=== PATIENT | male | born 1945 ===

== ENCOUNTER 2023-04-28 05:45 | Day surgery (SDC) | payer OTHER ==
[~2023-04-28 05:45] MED LIST: BIO-IMMUNEX CA500 MG PO; FOLIC ACID20 MG PO; NORVASC5 MG PO; REFRESH LIQUIGE15 ML OP; SIMVASTATIN10 MG PO; XALATAN; [UNRECOGNIZED DRUG - OTHER]
== END 2023-04-28 13:20 | disposition home or self-care (01) ==
LOC: CIR.AMB 05:45
PROVIDERS: ATTEND Colon & Rectal Surgery
DX: D12.8 Benign neoplasm of rectum (principal); K62.89 Other specified diseases of anus and rectum; K64.8 Other hemorrhoids; Z20.822 Contact with and (suspected) exposure to COVID-19; Z88.0 Allergy status to penicillin